=== PATIENT | male | born 1935 | race African-American/Black ===

== ENCOUNTER 2018-06-28 08:08 | Emergency (ER) | payer OTHER ==
[~2018-06-28] VITALS: Ht 188 cm; Wt 77.1 kg
--- NOTE | 2018-06-28 08:27 | NUR ---
ED Nurse Note: Pt walked in from home with cane due to possible skin abcess/ started 10 days ago. Wound about 3cm circumference. Pt stated he tried to squeeze the spot and white pus came out. Pain 8/10 janet. AOx4, VSS. Will cont to monitor.
--- NOTE | 2018-06-28 08:32 | Emergency Room Report ---
History of Present Illness General Chief Complaint: Skin Rash/Abscess Source: Patient Present Illness HPI Patient 83-year-old male brought in by self after increased right-sided skin lesion. Patient was noted to have a chronic area of swelling to his right side of his chest. He had noticed increased swelling as well as some slight drainage from the area. He denies any recent trauma. Patient denies any fever. He reports having type 2 diabetes. He had prior negative chest x-ray approximately 3 months ago.Patient has history of chronic back pain as well as prostate disease.He denies any current antibiotic use. Allergies: Coded Allergies: No Known Allergies (Unverified , 06/28/18) Patient History Reviewed Nursing Documentation: PMH: Agreed; PSxH: Agreed Nursing Documentation-PMH Hx Cardiac Problems: No - hypercholesterolemia Hx Hypertension: Yes Hx Diabetes: Yes - Type 2 Review of Systems All Other Systems: negative except mentioned in HPI Physical Exam Vital Signs Date Time Temp Pulse Resp B/P (MAP) Pulse Ox O2 Delivery O2 Flow Rate FiO2 06/28/18 08:11 98.1 74 15 158/76 97 Room Air General Appearance: well appearing, no apparent distress, alert, GCS 15 Head: normocephalic, atraumatic ENT: hearing grossly normal, normal voice Neck: full range of motion, supple Respiratory: no respiratory distress, speaking full sentences Cardiovascular #1: normal inspection, regular rate, rhythm, no edema Gastrointestinal: normal inspection, non tender, soft Musculoskeletal: no calf tenderness Neurologic: normal inspection, alert, oriented x3, responsive, 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, motor strength/tone normal, normal gait Psychiatric: mood/affect normal Skin: warm/dry, other - right chest wall fluctuance area Procedures Incision and Drainage Incision and Drainage : Consent: Written Site: right chest Blade Size: 11 I & D Procedure: betadine prep, sterile drapes applied, sterile dressing applied Wound Location: chest Wound's Depth, Shape: superficial Wound Length (cm): 1 Wound Explored: clean Anesthesia: Lidocaine w/ Epi Volume Anesthetic (ccs): 3 Patient Tolerated: Well Complications: None Medical Decision Making Diagnostic Impression: Primary Impression: Abscess ER Course Patient presented for lesion to the right chest. Differential diagnosis include was not limited to skin abscess, tuberculosis, folliculitis, necrotizing fasciitis among others. Patient has a benign exam and does not appear to require any further imaging or laboratory testing at this time. Patient was noted to have what looks like an abscess on the previous lipoma. Patient will be patient was consented for incision and drainage. Drain moderate amount of pus. He was given advised of the risk benefits and alternatives of the procedure including nonhealing wound and bleeding or infection. Patient agrees to proceed and accept the risk.Patient was advised to follow-up with his physician for recheck in 2-3 days. He was advised daily dressing changes. He is advised to return if he began having fever or any other concerns. Last Vital Signs Date Time Temp Pulse Resp B/P (MAP) Pulse Ox O2 Delivery O2 Flow Rate FiO2 06/28/18 08:11 98.1 74 15 158/76 97 Room Air Status: improved Disposition: HOME, SELF-CARE Condition: Stable Scripts Cephalexin* (KEFLEX*) 500 Mg Capsule 500 MG ORAL EVERY 6 HOURS, #28 CAP Prov: Kingsley Bartholomew MD 06/28/18 Trimethoprim/Sulfamethoxazole 160/800* (BACTRIM DS TABLET*) 1 Each Tablet 1 TAB ORAL Q12H, #14 TAB 0 Refills Prov: Kingsley Bartholomew MD 06/28/18 Kingsley Bartholomew MD Jun 28, 2018 08:32
[2018-06-28] MEDS ORDERED: CEPHALEXIN500 MG ORAL (08:43)
[2018-06-28] MEDS ORDERED: BACTRIM DS TAB1 EAC1 ORAL (08:43)
[2018-06-28] MEDS ORDERED: Lidocaine 1% 10mg/ml/Epi 0.005mg/ml 30ml vial INJ ONE (08:45)
[2018-06-28 09:16] VITALS: BP 142/82
--- NOTE | 2018-06-28 09:16 | NUR ---
ER DISCHARGE NOTE: Patient is cleared to be discharged per ERMD, pt is aox4, on room air, with stable vital signs. pt was given dc and prescription instructions, pt was able to verbalize understanding, pt id band removed. pt is able to ambulate with steady gait. pt took all belongings.
== END 2018-06-28 09:16 | disposition home or self-care (01) ==
LOC: EMR 08:46
DX: L02.213 Cutaneous abscess of chest wall (principal); E11.9 Type 2 diabetes mellitus without complications; R22.2 Localized swelling, mass and lump, trunk
CPT/HCPCS: 99283